=== PATIENT | female | born 2000 | race Two or more races ===

== ENCOUNTER 2020-06-04 11:05 | Emergency (ER) | payer MEDICAID ==
[~2020-06-04] VITALS: Ht 167.6 cm; Wt 118.0 kg
[2020-06-04] MEDS ORDERED: KETOROLAC 30MG/ML VIAL IV ONE (11:45)
[2020-06-04 12:47] LABS: BASOPHILS % 0.4 % (0.0-2.0); EOSINOPHILS % 3.7 % (0.0-5.0); HEMATOCRIT. 41.6 % (36.0-48.0); HEMOGLOBIN. 13.9 g/dL (12.0-16.0); LYMPHOCYTES % 17.2 % (20.0-50.0); MEAN CORPUSCULAR HEMOGLOBIN 27.6 pg (28.0-32.0); MEAN CORPUSCULAR VOLUME 82.9 fL (81.0-99.0); MEAN PLATELET VOLUME 8.1 fl (7.4-10.4); MONOCYTES % 6.2 % (2.0-8.0); NEUTROPHILS % 72.5 % (40.0-76.0); PLATELET 306 x1000/uL (130-400); RED BLOOD CELL COUNT 5.02 mill/uL (4.2-5.4); RED CELL DISTRIBUTION WIDTH 14.4 % (11.6-14.6)
[2020-06-04 13:00] LABS: CHLORIDE 111 mEq/L (98-107)
[2020-06-04 13:23] LABS: B-HCG QUANTITATIVE < 1 mIU/mL (<3)
[2020-06-04] MEDS ORDERED: ACETAMINOPHEN WITH CODEINE 300/30MG TABLET PO ONE (13:30)
[2020-06-04 15:15] VITALS: BP 103/55
== END 2020-06-04 15:45 | disposition home or self-care (01) ==
LOC: ER 11:05
DX: N92.1 Excessive and frequent menstruation with irregular cycle (principal); R03.0 Elevated blood-pressure reading, without diagnosis of hypertension
CPT/HCPCS: 36415; 76856; 80053; 84702; 85025; 86850; 86900; 86901; 93005; 96374; 99285; J1885